=== PATIENT | female | born 1975 | race African-American/Black ===

== ENCOUNTER 2018-05-28 16:29 | Emergency (ER) | payer OTHER ==
[~2018-05-28] VITALS: Ht 170.2 cm; Wt 61.2 kg
[~2018-05-28 16:29] MED LIST: BACTRIM-DS1 EA ORAL; BENADRYL50 MG PO; CIPRO500 MG PO; DIPHENHYDRAMINE25 M1 ORAL; KEFLEX500 MG ORAL; NITROFURANTOIN100 M2 ORAL; NKM; PREDNISONE20 MG ORAL
[2018-05-28 16:45] VITALS: BP 146/88
[2018-05-28] MEDS ORDERED: BENADRYL25 MG ORAL (17:01)
[2018-05-28] MEDS ORDERED: PREDNISONE20 MG ORAL (17:01)
[2018-05-28 17:30] VITALS: BP 146/88
--- NOTE | 2018-05-28 21:34 | Emergency Room Report ---
History of Present Illness General Chief Complaint: Upper Extremity Injury Source: Patient Present Illness HPI Patient 43-year-old female presented after increased itching and upper extremity discomfort. Patient reports having increased generalized itching. This of been present for several days. She reports having additional complaints of discomfort to her right upper extremities. Patient denied any fever. Allergies: Coded Allergies: No Known Allergies (Unverified , 09/04/12) Patient History Reviewed Nursing Documentation: PMH: Agreed; PSxH: Agreed Nursing Documentation-PMH Past Medical History: No Stated History Hx Neurological Problems: Yes - HX OF RASH Review of Systems All Other Systems: negative except mentioned in HPI Physical Exam Vital Signs Date Time Temp Pulse Resp B/P (MAP) Pulse Ox O2 Delivery O2 Flow Rate FiO2 05/28/18 16:32 98.1 99 16 146/88 97 Room Air 98.1 General Appearance: well appearing, no apparent distress, alert, GCS 15 Head: normocephalic, atraumatic ENT: hearing grossly normal, normal voice, other - slight swelling Neck: full range of motion, supple Respiratory: no respiratory distress, speaking full sentences Gastrointestinal: normal inspection, non tender Musculoskeletal: normal inspection, back normal, no calf tenderness Neurologic: normal inspection, alert, oriented x3, responsive, 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 Differential diagnosis included was not limited to allergic reaction, scabies, abscess, cellulitis among others. Patient has a benign exam and does not appear to require any further imaging or laboratory testing at this time. Patient was given Benadryl as well as steroids. Patient is advised follow-up with her primary care physician for reexamination the next few days. Labs Test 05/28/18 17:00 Urine HCG, Qualitative Negative (NEGATIVE) Last Vital Signs Date Time Temp Pulse Resp B/P (MAP) Pulse Ox O2 Delivery O2 Flow Rate FiO2 05/28/18 17:30 98.1 99 16 146/88 97 Room Air 98.1 Status: improved Disposition: HOME, SELF-CARE Condition: Stable Scripts Diphenhydramine Hcl* (BENADRYL*) 25 Mg Capsule 25 MG ORAL Q6H PRN for Itching, #20 CAP Prov: John Nagy MD 05/28/18 Prednisone* (PREDNISONE*) 20 Mg Tablet 40 MG ORAL DAILY, #10 TAB Prov: John Nagy MD 05/28/18 Referrals: Sukhwinder CANTU,REFERRING (PCP) Patient Instructions: Pruritus John Nagy MD May 28, 2018 21:34
== END 2018-05-28 17:30 | disposition home or self-care (01) ==
LOC: EMR 17:10
DX: T78.40XA Allergy, unspecified, initial encounter (principal); L29.8 Other pruritus
CPT/HCPCS: 81025; 99283; J7512

== ENCOUNTER 2018-09-22 18:46 | Emergency (ER) | payer OTHER ==
[~2018-09-22] VITALS: Ht 172.7 cm; Wt 72.6 kg
[~2018-09-22 18:46] MED LIST changes: +BACTRIM DS TAB1 EAC1 ORAL; +BENADRYL25 MG ORAL; +IBUPROFEN600 MG ORAL
[2018-09-22 19:09] VITALS: BP 128/78
--- NOTE | 2018-09-22 19:09 | NUR ---
ED Nurse Note: Pt walked in ER and c/o for bartholins gland infection. per pt the inserts places yesterday came out. per pt inserts were to be removed on 09/28/18. pt is feels pain in genital area 04/23. per pt bloody drainage present but is slowing down. ELENA seen Pt at bedside.
[2018-09-22] MEDS ORDERED: Lidocaine 1% Plain 30 ml INJ ONE (20:30)
--- NOTE | 2018-09-22 21:00 | NUR ---
ED Nurse Note: Clean the abscess and pack the dressing.
[2018-09-22] MEDS ORDERED: TYLENOL EXTRA500 MG ORAL (21:16)
--- NOTE | 2018-09-22 21:18 | Emergency Room Report ---
History of Present Illness General Chief Complaint: General Complaint Source: Patient Present Illness HPI 43-year-old female patient presents the ER complaining of Bartholin cyst pain. Patient reports that she was seen here previously in the ER yesterday for similar complaints. Patient reports that she was discharged home with a Word catheter and antibiotics. States she began taking antibiotics. Patient reports that the Word catheter fell out and she is concerned that it needs to be placed back in. Patient reports small amount discharge from Bartholin cyst. Denies dysuria, hematuria. Denies vaginal discharge. Reports pain with ambulation. Requesting work catheter to be placed back in. Denies fever, chest pain, shortness of breath, vomiting, abdominal pain. Allergies: Coded Allergies: No Known Allergies (Unverified , 09/04/12) Patient History Past Medical History: see triage record Last Menstrual Period: 09/09/19 Now: No Reviewed Nursing Documentation: PMH: Agreed; PSxH: Agreed Nursing Documentation-PMH Past Medical History: No History, Except For Hx Neurological Problems: Yes - HX OF RASH Review of Systems All Other Systems: negative except mentioned in HPI Physical Exam Vital Signs Date Time Temp Pulse Resp B/P (MAP) Pulse Ox O2 Delivery O2 Flow Rate FiO2 09/22/18 18:51 98.4 96 16 118/72 96 Sp02 EP Interpretation: reviewed, normal General Appearance: well appearing, no apparent distress, alert, GCS 15, non- toxic Head: normocephalic, atraumatic Eyes: bilateral eye normal inspection, bilateral eye PERRL ENT: hearing grossly normal, normal pharynx, no angioedema, normal voice, uvula midline, moist mucus membranes Neck: full range of motion Respiratory: lungs clear, normal breath sounds, no rhonchi, no respiratory distress, no accessory muscle use, no wheezing, speaking full sentences Cardiovascular #1: regular rate, rhythm, no edema Genitourinary: other - Left-sided Bartholin cyst, no surrounding erythema or edema, no drainage, circular, no induration, small linear laceration noted consistent with history of I&D Musculoskeletal: back normal, digits/nails normal, gait/station normal, normal range of motion, non-tender Neurologic: alert, oriented x3, responsive, motor strength/tone normal, sensory intact Skin: no rash Procedures Incision and Drainage Incision and Drainage : Consent: Verbal Site: Left Bartholin cyst Blade Size: 11 I & D Procedure: betadine prep, sterile drapes applied, sterile dressing applied Wound Location: other - Bartholin cyst Wound's Depth, Shape: superficial Wound Length (cm): 1 Wound Explored: contaminated Irrigated w/ Saline (ccs): 10 Anesthesia: 1% Lidocaine Volume Anesthetic (ccs): 2 Splint Applied?: No Sling Applied?: No Patient Tolerated: Well Complications: None Medical Decision Making PA Attestation Dr. Ford is my supervising Physician whom patient management has been discussed with. Diagnostic Impression: Primary Impression: Bartholin's cyst ER Course Pt presents to ED c/o Bartholin cyst, states word catheter fell out. DDX considered but are not limited to Bartholin cyst, herpes,gonorrhea, chlamydia, yeast infection, BV. VITAL SIGNS are WNL, patient is afebrile. ER COURSE Physical exam performed with female nurse present. Left Bartholin cyst noted, no surrounding erythema or edema. Small linear laceration noted, no drainage present, no Word catheter. Discussed with patient causes and symptoms of Bartholin cyst infection; informed patient that symptomatic cysts require I&D. Informed patient that Word catheters may fall out on their own. Patient reports understanding and requests Word Catheter be replaced. I&D performed. See procedure note. Local block with lidocaine. Word catheter used and inflated with 2.5ccs of normal saline. ER precautions given. Followup with OBGYN. Continue taking medications as previously instructed. Followup with [facility] clinic. Inform partners of need for testing. DISCHARGE: At this time pt is stable for d/c to home.Resting comfortably in no acute distress, nontoxic appearing. Will provide with patient care instructions and any necessary prescriptions. Patient to take medication as instructed. Care plan and follow-up instructions provided. Patient questions asked and answered. Patient instructed to follow-up with primary care provider in 3 - 5 days. ER precautions given. Patient instructed to return to ER immediately for any new or worsening of symptoms. - Please note that this Emergency Department Report was dictated using [employer]at[employer] machinery assembler technology software, occasionally this can lead to erroneous entry secondary to interpretation by the dictation equipment. Last Vital Signs Date Time Temp Pulse Resp B/P (MAP) Pulse Ox O2 Delivery O2 Flow Rate FiO2 09/22/18 18:51 98.4 96 16 118/72 96 Status: improved Disposition: HOME, SELF-CARE Condition: Stable Scripts Acetaminophen* (TYLENOL EXTRA STRENGTH*) 500 Mg Tablet 500 MG ORAL Q8H PRN for Prn Headache/Temp > 101, #30 TAB 0 Refills Prov: Caleb Ambrocio 09/22/18 Patient Instructions: Bartholin Cyst or Abscess, [id number] Additional Instructions: Followup with OBGYN in 1-2 days. Take medications as directed. Take Tylenol for pain, do not take Ibuprofen. Avoid sexual activity. Inform sexual partners of need for testing. Followup with STI clinic for further testing and treatment. Patient questions asked and answered. ER precautions given, patient instructed to return to ER immediately for any new or worsening of symptoms including but not limited to chest pain, SOB, intractable vomiting, profuse vaginal bleeding, abdominal pain. Caleb Ambrocio Sep 22, 2018 21:18
[2018-09-22 21:30] VITALS: BP 127/87
--- NOTE | 2018-09-22 21:30 | NUR ---
ED Nurse Note: Pt cleared DC by ELENA. Pt is AO x 4times, VSS, on room air no distress. DC and Meds instructions given to Pt, Pt understood well. Belongings given to Pt. ID bend removed. Pt walked out unit with steady gait.
== END 2018-09-22 21:30 | disposition home or self-care (01) ==
LOC: EMR 19:58
DX: N75.0 Cyst of Bartholin's gland (principal)
CPT/HCPCS: 56420; 99283; J2001

== ENCOUNTER 2018-09-27 13:07 | Emergency (ER) | payer OTHER ==
[~2018-09-27] VITALS: Ht 170.2 cm; Wt 72.6 kg
[~2018-09-27 13:07] MED LIST changes: +TYLENOL EXTRA500 MG ORAL
[2018-09-27] MEDS ORDERED: NKM (13:15)
[2018-09-27 13:20] VITALS: BP 133/73
--- NOTE | 2018-09-27 13:42 | Emergency Room Report ---
History of Present Illness General Chief Complaint: Female Urogenital Problems Source: Patient Present Illness HPI 43 Yo Female presents to the ED c/o recent Bartholin's gland I & D that now has developed a palpable hardened area, and continues to be tender. 8/10 in severity. pt. reports symptoms have improved greatly since her initial visit. Pt. has not made a Occupational Health Rn follow up appt. pt. denies erythema, warmth, swollen tender lymph nodes, fevers or chills. pt. reports new white vaginal d/c with some itching. Denies additional genital lesions. pt. reports she finished abx and is still taking Motrin. Allergies: Coded Allergies: No Known Allergies (Unverified , 09/04/12) Patient History Past Medical History: see triage record Past Surgical History: none Pertinent Family History: none Last Menstrual Period: 09/09/18 Now: No : 0 Para: 0 Reviewed Nursing Documentation: PMH: Agreed; PSxH: Agreed Nursing Documentation-PMH Past Medical History: No History, Except For Hx Neurological Problems: Yes - HX OF RASH Review of Systems All Other Systems: negative except mentioned in HPI Physical Exam Vital Signs Date Time Temp Pulse Resp B/P (MAP) Pulse Ox O2 Delivery O2 Flow Rate FiO2 09/27/18 13:10 97.9 100 18 133/73 99 Room Air Sp02 EP Interpretation: reviewed, normal General Appearance: no apparent distress, alert, GCS 15, non-toxic Head: normocephalic, atraumatic Eyes: bilateral eye normal inspection, bilateral eye PERRL ENT: hearing grossly normal, normal voice Neck: full range of motion Respiratory: lungs clear, normal breath sounds, speaking full sentences Cardiovascular #1: regular rate, rhythm Genitourinary: other - Thick white vaginal d/c, Some induration/palpable firmness to the left lower labia/bartholins gland. NO erythema, no warmth, no additinoal lesions. initial incision is healed. Musculoskeletal: back normal, gait/station normal, normal range of motion, non- tender Neurologic: alert, oriented x3, responsive, motor strength/tone normal, sensory intact, speech normal, grossly normal Psychiatric: judgement/insight normal Skin: normal color, no rash, warm/dry, well hydrated Lymphatic: no adenopathy Medical Decision Making PA Attestation Dr. stein is my supervising Physician whom patient management has been discussed with. Diagnostic Impression: Primary Impression: Cyst of Bartholin's gland ER Course 43 Yo Female presents to the ED c/o recent Bartholin's gland I & D that now has developed a palpable hardened area, and continues to be tender. 8/10 in severity. pt. reports symptoms have improved greatly since her initial visit. Pt. has not made a Occupational Health Rn follow up appt. pt. denies erythema, warmth, swollen tender lymph nodes, fevers or chills. pt. reports new white vaginal d/c with some itching. Denies additional genital lesions. pt. reports she finished abx and is still taking Motrin. Ddx considered but are not limited to cellulitis, abscess, in-grown hair, recurrent Bartholin gland abscess, Yeast infection just to name a few. Vital signs: are WNL, pt. is afebrile H&PE are most consistent with scarring from bartholin gland i & D. no erythema , no warmth. ORDERS: none required at this time, the diagnosis is clinical ED INTERVENTIONS: -Diflucan PO --D/w pt. that This does not appear to be infected or abscessed at this time however will keep her on some antibiotics to prevent infection I discussed with this patient the importance of chronic logical follow-up for further management or treatment of this condition as this may require surgical removal or other specialty type treatments. DISCHARGE: At this time pt. is stable for d/c to home. Will provide printed patient care instructions, and any necessary prescriptions. Care plan and follow up instructions have been discussed with the patient prior to discharge. Last Vital Signs Date Time Temp Pulse Resp B/P (MAP) Pulse Ox O2 Delivery O2 Flow Rate FiO2 09/27/18 13:10 97.9 100 18 133/73 99 Room Air Disposition: HOME, SELF-CARE Condition: Stable Scripts Fluconazole (FLUCONAZOLE) 100 Mg Tablet 100 MG ORAL DAILY, #4 TAB 0 Refills Prov: Paradise Argueta 09/27/18 Lidocaine (Lidocaine) 5 Gm Cream..g. 1 APPLIC TP Q6HR, #5 GM Prov: Paradise Argueta 09/27/18 Clindamycin Hcl (CLINDAMYCIN HCL) 300 Mg Capsule 300 MG ORAL FOUR TIMES A DAY for 7 Days, #28 CAP Prov: Paradise Argueta 09/27/18 Referrals: NON PHYSICIAN (PCP) Patient Instructions: Bartholin Cyst or Abscess, Alwe-ax-Ponb Additional Instructions: Take medications as directed. Follow up with a OBGYN within 3 days, For evaluation of recurrent Bartholin 's gland abscess and cyst complications. Return sooner to ED if new symptoms occur, or current symptoms become worse. - Please note that this Emergency Department Report was dictated using Codigamesbending press operator technology software, occasionally this can lead to erroneous entry secondary to interpretation by the dictation equipment. Paradise Argueta Sep 27, 2018 13:42
[2018-09-27] MEDS ORDERED: LIDOCAINE5 GM TP (13:44)
[2018-09-27] MEDS ORDERED: CLINDAMYCIN HC300 MG ORAL (13:44)
[2018-09-27] MEDS ORDERED: FLUCONAZOLE100 MG ORAL (13:44)
[2018-09-27] MEDS ORDERED: Fluconazole 100mg tab ORAL ONE (14:00)
[2018-09-27 14:15] VITALS: BP 133/73
== END 2018-09-27 14:15 | disposition home or self-care (01) ==
LOC: EMR 13:30
DX: N75.0 Cyst of Bartholin's gland (principal)
CPT/HCPCS: 99282

== ENCOUNTER 2019-02-20 09:08 | Emergency (ER) | payer OTHER ==
[~2019-02-20] VITALS: Ht 172.7 cm; Wt 65.8 kg
[~2019-02-20 09:08] MED LIST changes: +CLINDAMYCIN HC300 MG ORAL; +FLUCONAZOLE100 MG ORAL; +LIDOCAINE5 GM TP
[2019-02-20] MEDS ORDERED: GABAPENTIN300 MG ORAL (09:22)
[2019-02-20 09:30] VITALS: BP 132/79
--- NOTE | 2019-02-20 09:32 | NUR ---
ED Nurse Note: pt walked in due to itchiness all over the body on and off, denies any allergies, pt stated she took benadryl last night and didnt help. no rash noted. pt complains of pain on the lower back, denies trauma.
--- NOTE | 2019-02-20 09:42 | Emergency Room Report ---
History of Present Illness General Chief Complaint: General Complaint Source: Patient Present Illness HPI Patient presents with itching that began yesterday. She's had similar reaction in the past but never this severe. She's not sure what she was in contact with. She tried taking a hot shower and this made it worse. She took Benadryl this morning. She denies any fevers, chills, nausea, vomiting, diarrhea, throat swelling, wheezing or dizziness. Her last period was February 05 and normal for her. 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 Now: No Reviewed Nursing Documentation: PMH: Agreed; PSxH: Agreed Nursing Documentation-PMH Past Medical History: No History, Except For Hx Neurological Problems: Yes - HX OF RASH, nerve pain Review of Systems All Other Systems: negative except mentioned in HPI Physical Exam Vital Signs Date Time Temp Pulse Resp B/P (MAP) Pulse Ox O2 Delivery O2 Flow Rate FiO2 02/20/19 09:17 97.9 83 17 132/79 (96) 99 Room Air Sp02 EP Interpretation: reviewed, normal General Appearance: well appearing, no apparent distress, alert, GCS 15, non- toxic Head: normocephalic, atraumatic Eyes: bilateral eye normal inspection, bilateral eye PERRL ENT: hearing grossly normal, normal voice, moist mucus membranes Neck: full range of motion, supple Respiratory: lungs clear, normal breath sounds, no respiratory distress, speaking full sentences Cardiovascular #1: regular rate, rhythm Cardiovascular #2: 2+ radial (R) Gastrointestinal: normal inspection, non tender Genitourinary: no CVA tenderness Musculoskeletal: digits/nails normal, gait/station normal, normal range of motion Neurologic: alert, oriented x3, normal gait, grossly normal Psychiatric: mood/affect normal Skin: other - Cgixy-dpe-reeft and scratching Medical Decision Making Diagnostic Impression: Primary Impression: Urticaria Additional Impression: UTI (urinary tract infection) Qualified Codes: N30.00 - Acute cystitis without hematuria ER Course Patient presents with generalized itching. She's been seen for allergic reactions in the past. Differential includes hives, allergic reaction, food allergies, exposure to other substances amongst others. The patient will be treated with IM epinephrine, oral prednisone and Vistaril as she took Benadryl earlier today. Urinalysis will be obtained. Urinalysis negative. Patient still with itching but slightly improved. Vistaril given. Patient itching is decreased. Discussed with patient the need to follow-up with an snap attacher to determine what causes these reactions. Patient stable for outpatient observation and treatment. Laboratory Tests Test 02/20/19 09:45 Urine Color Pale yellow Urine Appearance Clear Urine pH 5 (4.5-8.0) Urine Specific [place] 1.025 (1.005-1.035) Urine Protein 2+ (NEGATIVE) H Urine Glucose (UA) 2+ (NEGATIVE) H Urine Ketones 1+ (NEGATIVE) H Urine Blood Negative (NEGATIVE) Urine Nitrite Negative (NEGATIVE) Urine Bilirubin Negative (NEGATIVE) Urine Urobilinogen Normal MG/DL (0.0-1.0) Urine Leukocyte Esterase 3+ (NEGATIVE) H Urine RBC 0-2 /HPF (0 - 2) Urine WBC 10-15 /HPF (0 - 2) H Urine Squamous Epithelial Cells Few /LPF (NONE/OCC) Urine Bacteria Few /HPF (NONE) Urine HCG, Qualitative Negative (NEGATIVE) Urine Opiates Screen Negative (NEGATIVE) Urine Barbiturates Screen Negative (NEGATIVE) Phencyclidine (PCP) Screen Negative (NEGATIVE) Urine Amphetamines Screen Negative (NEGATIVE) Urine Benzodiazepines Screen Negative (NEGATIVE) Urine Cocaine Screen Negative (NEGATIVE) Urine Marijuana (THC) Screen Negative (NEGATIVE) Last Vital Signs Date Time Temp Pulse Resp B/P (MAP) Pulse Ox O2 Delivery O2 Flow Rate FiO2 02/20/19 10:50 98.0 78 16 115/75 98 Room Air Status: improved Disposition: HOME, SELF-CARE Condition: Improved Scripts Nitrofurantoin Monohyd/M-Cryst* (MACROBID 100 MG*) 100 Mg Capsule 100 MG ORAL EVERY 12 HOURS, #14 CAP Prov: Pepe Wagner MD 02/20/19 Diphenhydramine Hcl* (BENADRYL*) 25 Mg Capsule 25 MG ORAL Q6H PRN for Itching, #20 CAP 1 Refill Prov: Pepe Wagner MD 02/20/19 Prednisone* (PREDNISONE*) 20 Mg Tablet 40 MG ORAL DAILY, #10 TAB Prov: Pepe Wagner MD 02/20/19 Pepe Wagner MD Feb 20, 2019 09:42
[2019-02-20] MEDS ORDERED: EPINEPHrine 1mg/1ml Amp IM ONE (09:45)
--- NOTE | 2019-02-20 09:55 | NUR ---
ED Nurse Note: pt medicated and tolerated well.
--- NOTE | 2019-02-20 09:56 | NUR ---
ED Nurse Note: Pt able to give urine sample and was sent to lab.
[2019-02-20 10:07] LABS: APPEARANCE,URINE CLEAR; BILIRUBIN, URINE NEGATIVE (NEGATIVE); COLOR,URINE PALE YELLOW; GLUCOSE, URINE (UA) 2+ (NEGATIVE); KETONES,URINE 1+ (NEGATIVE); LEUKOCYTE ESTERASE ,URINE 3+ (NEGATIVE); NITRITE,URINE NEGATIVE (NEGATIVE); PH,URINE 5 (4.5-8.0); PROTEIN,URINE 2+ (NEGATIVE); UROBILINOGEN,URINE NORMAL MG/DL (0.0-1.0)
--- NOTE | 2019-02-20 10:25 | NUR ---
ED Nurse Note: pt reassess, pt is not in distress, no complaint of dyspnea, pt complains of itchiness even after medicated. ermd made aware and order IM benadryl and carried out. pt medicated and tolerated well. will continue to monitor
[2019-02-20] MEDS ORDERED: DiphenhydrAMINE 50mg/ml Inj IM ONE (10:30)
[2019-02-20] MEDS ORDERED: PREDNISONE20 MG ORAL (10:40)
[2019-02-20] MEDS ORDERED: BENADRYL25 MG ORAL (10:40)
[2019-02-20] MEDS ORDERED: NITROFURANTOIN100 M2 ORAL (10:40)
[2019-02-20 10:50] VITALS: BP 115/75
--- NOTE | 2019-02-20 10:50 | NUR ---
ER DISCHARGE NOTE: Patient is cleared to be discharged per ERMD, pt is aox4, on room air, with stable vital signs. pt was given dc and prescription instructions, pt was able to verbalize understanding, pt id band removed without complications. pt is able to ambulate with steady gait. pt took all belongings.
== END 2019-02-20 10:50 | disposition home or self-care (01) ==
LOC: EMR 09:53
DX: L50.9 Urticaria, unspecified (principal); N39.0 Urinary tract infection, site not specified
CPT/HCPCS: 80307; 81003; 81025; 87086; 96372; 99283; J0171; J1200; J7512

== ENCOUNTER 2019-05-06 16:40 | Emergency (ER) | payer OTHER ==
[~2019-05-06] VITALS: Ht 170.2 cm; Wt 72.6 kg
[~2019-05-06 16:40] MED LIST changes: +GABAPENTIN300 MG ORAL
--- NOTE | 2019-05-06 16:55 | NUR ---
ED Nurse Note: Patient walked into ED c/o left forearm itchiness and swelling, painful, radiating to all of her left forearm. patient reports that she felt unknown insect bite, then today, the site had swelling and it's painful. patient is alert awake x4 ambuatory breathing unlabored and even.
[2019-05-06 17:10] VITALS: BP 130/85
--- NOTE | 2019-05-06 17:10 | Emergency Room Report ---
History of Present Illness General Chief Complaint: Skin Rash/Abscess Source: Patient Present Illness HPI 44 YO Female presents to the ED c/o 04/23 in severity pain, swelling, and erythema of left forearm that has been progressive x 2 days with initial itching. Pt. believes she was bitten by an insect. Denies fevers or chills. Reports erythema and warmth is spreading up the left fore arm. Pt. reports intermittent tingling sensations. She reports letting her arm hang exacerbates swelling and pain. She also reports pain with twisting the left forearm/lifting objects. Denies swollen tender lymph nodes. Denies hx of immune compromise. Denies IV drug use. Allergies: Coded Allergies: No Known Allergies (Unverified , 09/04/12) Patient History Past Medical History: see triage record Past Surgical History: none Pertinent Family History: none Now: No Reviewed Nursing Documentation: PMH: Agreed; PSxH: Agreed Nursing Documentation-PMH Past Medical History: No Stated History Hx Neurological Problems: Yes - HX OF RASH, nerve pain Review of Systems All Other Systems: negative except mentioned in HPI Physical Exam Vital Signs Date Time Temp Pulse Resp B/P (MAP) Pulse Ox O2 Delivery O2 Flow Rate FiO2 05/06/19 16:45 98.2 107 18 132/90 (104) 99 Room Air Sp02 EP Interpretation: reviewed, normal General Appearance: no apparent distress, alert, GCS 15, non-toxic Head: normocephalic, atraumatic Eyes: bilateral eye normal inspection, bilateral eye PERRL ENT: hearing grossly normal, normal voice Neck: full range of motion Respiratory: chest non-tender, lungs clear, normal breath sounds, speaking full sentences Cardiovascular #1: regular rate, rhythm, no edema, normal capillary refill Musculoskeletal: back normal, gait/station normal, normal range of motion, tender - TTP to the medial / volar aspect of the left forearm, swelling, erythema and warmth noted. area spanning 12cm in diameter. no palpable fluctuance. Neurologic: alert, oriented x3, responsive, motor strength/tone normal, sensory intact, speech normal, grossly normal Psychiatric: judgement/insight normal Skin: other - --Medial / Volar aspect of the left forearm, swelling, erythema and warmth noted. area spanning 12cm in diameter. no palpable fluctuance. Lymphatic: no adenopathy Medical Decision Making PA Attestation Dr. Bah is my supervising Physician whom patient management has been discussed with. Diagnostic Impression: Primary Impression: Cellulitis of forearm, left ER Course 44 YO Female presents to the ED c/o 04/23 in severity pain, swelling, and erythema of left forearm that has been progressive x 2 days with initial itching. Pt. believes she was bitten by an insect. Denies fevers or chills. Reports erythema and warmth is spreading up the left fore arm. Pt. reports intermittent tingling sensations. She reports letting her arm hang exacerbates swelling and pain. She also reports pain with twisting the left forearm/lifting objects. Denies swollen tender lymph nodes. Denies hx of immune compromise. Denies IV drug use. Ddx considered but are not limited to cellulitis, lymphangitis, allergic reaction just to name a few. Vital signs: are WNL, pt. is afebrile H&PE are most consistent with Cellulitis of the left forearm. ORDERS: none required at this time, the diagnosis is clinical ED INTERVENTIONS: -Clindamycin 300mg PO - Hydrocortisone 2.5% cream TP --Left arm Sling applied by body shop technician. Pt. remains neurovascularly intact. -I do not identify an emergent condition at this time. With current presentation , pt. is stable for close outpatient follow up and conservative treatment. D/ w pt. to return promptly to ED with worsening or new symptoms.- Pt. verbalizes' understanding and agreement with proposed treatment plan. DISCHARGE: At this time pt. is stable for d/c to home. Will provide printed patient care instructions, and any necessary prescriptions. Care plan and follow up instructions have been discussed with the patient prior to discharge. Last Vital Signs Date Time Temp Pulse Resp B/P (MAP) Pulse Ox O2 Delivery O2 Flow Rate FiO2 05/06/19 16:45 98.2 107 18 132/90 (104) 99 Room Air Status: improved Disposition: HOME, SELF-CARE Condition: Stable Scripts Ibuprofen* (MOTRIN*) 400 Mg Tablet 400 MG ORAL THREE TIMES A DAY, #30 TAB 0 Refills Prov: Paradise Argueta 05/06/19 Diphenhydramine Hcl (BENADRYL ALLERGY) 25 Mg Tablet 25 MG PO Q6HR, #30 TAB Prov: Paradise Argueta 05/06/19 Clindamycin Hcl (CLINDAMYCIN HCL) 300 Mg Capsule 300 MG ORAL FOUR TIMES A DAY for 7 Days, #28 CAP Prov: Paradise Argueta 05/06/19 Patient Instructions: Cellulitis, [id number] Additional Instructions: Take medications as directed. Follow up with a Primary Care Provider in 3-5 days, even if your symptoms have resolved. --Please review list of primary care clinics, if you do not already have a primary care provider Return sooner to ED if new symptoms occur, or current symptoms become worse. Do not drink alcohol, drive, or operate heavy machinery while taking Benadryl as this may cause drowsiness. - Please note that this Emergency Department Report was dictated using [email or web address] resource officer technology software, occasionally this can lead to erroneous entry secondary to interpretation by the dictation equipment. Paradise Argueta May 06, 2019 17:09
[2019-05-06] MEDS ORDERED: Clindamycin 150mg cap ORAL ONE (17:15)
[2019-05-06] MEDS ORDERED: IBUPROFEN400 MG ORAL (17:19)
[2019-05-06] MEDS ORDERED: CLINDAMYCIN HC300 MG ORAL (17:19)
[2019-05-06] MEDS ORDERED: BENADRYL ALLERG25 M1 PO (17:19)
[2019-05-06 17:43] VITALS: BP 130/85
--- NOTE | 2019-05-06 17:43 | NUR ---
ER DISCHARGE NOTE: Patient is cleared to be discharged per JESUS COVINGTON, pt is aox4, on room air, with stable vital signs. pt was given dc and prescription instructions pt was able to verbalize understanding, pt id band removed without complications. pt is able to ambulate with steady gait. pt took all belongings.
== END 2019-05-06 17:43 | disposition home or self-care (01) ==
LOC: EMR 17:08
DX: L03.114 Cellulitis of left upper limb (principal)
CPT/HCPCS: 99282

== ENCOUNTER 2019-10-26 16:24 | Emergency (ER) | payer OTHER ==
[~2019-10-26] VITALS: Ht 170.2 cm; Wt 72.6 kg
[~2019-10-26 16:24] MED LIST changes: +BENADRYL ALLERG25 M1 PO; +IBUPROFEN400 MG ORAL
--- NOTE | 2019-10-26 16:38 | NUR ---
ED Nurse Note: Pt walked in from home c/o neck pain and itchiness all over her body for 4 days. Respirations even and unlabored on room air. Vitals stable as documented.
[2019-10-26 16:39] VITALS: BP 127/83
--- NOTE | 2019-10-26 16:55 | Emergency Room Report ---
History of Present Illness General Chief Complaint: Pain Source: Patient Present Illness HPI 44-year-old female presents to the emergency department complaining of 8 out of 10 severity pain, tightness and tenderness to the right side of her neck upon awakening this 4 days ago. She reports neck stiffness has remained the same, but itchiness all over the body has been progressive. Patient also reports that she is been having diffuse itchiness all over her body with some hives since yesterday. She denies midline neck or back pain. She denies trauma or fall. She denies headache or photophobia. She reports pain is exacerbated when raising the right arm up above her head or twisting her head from side to side. She states the pain is only localized to the right posterior aspect of her neck. Denies shoulder involvement. Pt. denies fevers, chills or swollen tender lymph nodes. Denies lesions/rashes elsewhere on the body. Denies new medications or body washes or creams. Denies swelling of the lips, tongue , throat or airway. Denies wheezing, or shortness of breath. Denies recent travel , recent illness or ill contacts. denies blisters, oral lesions, or sloughing of the skin Allergies: Coded Allergies: No Known Allergies (Unverified , 09/04/12) Patient History Past Medical History: see triage record Past Surgical History: none Pertinent Family History: none Reviewed Nursing Documentation: PMH: Agreed; PSxH: Agreed Nursing Documentation-PMH Past Medical History: No History, Except For Hx Neurological Problems: Yes - HX OF RASH, nerve pain Review of Systems All Other Systems: negative except mentioned in HPI Physical Exam Vital Signs Date Time Temp Pulse Resp B/P (MAP) Pulse Ox O2 Delivery O2 Flow Rate FiO2 10/26/19 16:32 98.1 93 18 127/83 (98) 99 Room Air Sp02 EP Interpretation: reviewed, normal General Appearance: no apparent distress, alert, GCS 15, non-toxic Head: normocephalic, atraumatic Eyes: bilateral eye normal inspection, bilateral eye PERRL ENT: hearing grossly normal, no angioedema, normal voice, other - No oral lesions, no swelling of the lips or tongues. Neck: full range of motion, no meningismus, tender lateral - Right sided, no midline spinous process ttp, FROM. Respiratory: lungs clear, normal breath sounds, no wheezing, speaking full sentences, other - No Stridor Cardiovascular #1: regular rate, rhythm, normal capillary refill Cardiovascular #2: 2+ radial (R), 2+ radial (L) Musculoskeletal: normal range of motion, gait/station normal, tender - RIght trapezius ttp, and some right rhomboid ttp, no bony ttp, FROM of right shoulder and neck. No midline spinous process ttp. No palpable step-offs or obvious deformities of the cervical, thoracic or lumbar spine. Neurologic: alert, motor strength/tone normal, oriented x3, sensory intact, responsive, speech normal Psychiatric: judgement/insight normal Skin: rash - Diffuse erythematous patches with some swelling throughout the upper extremities bilaterally, the torso, the back, the thighs bilaterally. No blisters or vesicles. No sloughing of the skin Lymphatic: no adenopathy Medical Decision Making PA Attestation Dr. Obregon is my supervising Physician whom patient management has been discussed with. Diagnostic Impression: Primary Impression: Urticaria Additional Impression: Cervical strain, acute Qualified Codes: S16.1XXA - Strain of muscle, fascia and tendon at neck level , initial encounter ER Course 44-year-old female presents to the emergency department complaining of 8 out of 10 severity pain, tightness and tenderness to the right side of her neck upon awakening this 4 days ago. She reports neck stiffness has remained the same, but itchiness all over the body has been progressive. Patient also reports that she is been having diffuse itchiness all over her body with some hives since yesterday. She denies midline neck or back pain. She denies trauma or fall. She denies headache or photophobia. She reports pain is exacerbated when raising the right arm up above her head or twisting her head from side to side. She states the pain is only localized to the right posterior aspect of her neck. Denies shoulder involvement. Pt. denies fevers, chills or swollen tender lymph nodes. Denies lesions/rashes elsewhere on the body. Denies new medications or body washes or creams. Denies swelling of the lips, tongue , throat or airway. Denies wheezing, or shortness of breath. Denies recent travel , recent illness or ill contacts. denies blisters, oral lesions, or sloughing of the skin Ddx considered but are not limited to Fracture, dislocation, contusion, Sprain/ Strain/Spasm, to cellulitis, scabies, shingles, varicella, dermatitis, urticaria , eczema, tinea, viral exanthem, SJS, sprain, strain, Torticollis, lymphadenopathy, tonsillitis, OE, Cellulitis, PATENT [place], retropharyngeal abscess. meningitis, LAD just to name a few. Epidural abscess, Neoplastic mets. Vital signs: are WNL, pt. is afebrile H&PE are most consistent with acute urticaria, diffuse without evidence of airway compromise. Acute cervical strain, no meningeal signs, no focal neurological deficits. ORDERS: - None required at this time. ED INTERVENTIONS: - Benadryl PO -Prednisone PO - Robaxin PO -Lidoderm TP DISCHARGE: At this time pt. is stable for d/c to home. Will provide printed patient care instructions, and any necessary prescriptions. Care plan and follow up instructions have been discussed with the patient prior to discharge. Last Vital Signs Date Time Temp Pulse Resp B/P (MAP) Pulse Ox O2 Delivery O2 Flow Rate FiO2 10/26/19 16:39 98.1 82 18 127/83 99 Room Air Status: improved Disposition: HOME, SELF-CARE Condition: Stable Scripts Ibuprofen* (MOTRIN*) 600 Mg Tablet 600 MG ORAL THREE TIMES A DAY, #30 TAB 0 Refills Prov: Paradise Argueta 10/26/19 Diphenhydramine Hcl* (BENADRYL*) 25 Mg Capsule 25 MG ORAL Q6H PRN for Itching, #30 CAP Prov: Paradise Argueta 10/26/19 Methocarbamol* (ROBAXIN-750*) 750 Mg Tablet 750 MG PO QID for 7 Days, #28 TAB 0 Refills Prov: Paradise Argueta 10/26/19 Departure Forms: Return to Work Return to Work Date: Oct 30, 2019 Work Restrictions: No Heavy Lifting Other Restrictions: light duty. May return Sooner if Symptoms have resolved. Return to Full Activity: Nov 02, 2019 Patient Instructions: Cervical Sprain, [id number], Pruritus Additional Instructions: Take medications as directed. Follow up with a Primary Care Provider in 3-5 days for DERMATOLOGY REFERRAL , even if your symptoms have resolved. Return sooner to ED if new symptoms occur, or current symptoms become worse. Do not drink alcohol, drive, or operate heavy machinery while taking Robaxin as this may cause drowsiness. - Please note that this Emergency Department Report was dictated using AQHlog chipper operator technology software, occasionally this can lead to erroneous entry secondary to interpretation by the dictation equipment. Paradise Argueta Oct 26, 2019 16:55
[2019-10-26] MEDS ORDERED: DiphenhydrAMINE 25mg Tab ORAL ONE (17:15)
[2019-10-26] MEDS ORDERED: Methocarbamol 750mg tab ORAL ONE (17:15)
[2019-10-26] MEDS ORDERED: ROBAXIN-750750 MG PO (17:45)
[2019-10-26] MEDS ORDERED: IBUPROFEN600 MG ORAL (17:45)
[2019-10-26] MEDS ORDERED: BENADRYL25 MG ORAL (17:45)
--- NOTE | 2019-10-26 17:55 | NUR ---
ER DISCHARGE NOTE: Patient is cleared to be discharged per ERMD, pt is aox4, on room air, with stable vital signs as documented. pt was given dc and prescription instructions and was able to verbalize understanding. pt id band removed. pt is able to ambulate with steady gait. pt took all belongings.
[2019-10-26 18:00] VITALS: BP 131/84
== END 2019-10-26 17:55 | disposition home or self-care (01) ==
LOC: EMR 17:00
DX: L50.9 Urticaria, unspecified (principal); S16.1XXA Strain of muscle, fascia and tendon at neck level, initial encounter; X58.XXXA Exposure to other specified factors, initial encounter; Y93.9 Activity, unspecified; Y92.9 Unspecified place or not applicable
CPT/HCPCS: 99283; J7512

== ENCOUNTER 2020-02-19 10:19 | Emergency (ER) | payer OTHER ==
[~2020-02-19] VITALS: Ht 170.2 cm; Wt 68.0 kg
[~2020-02-19 10:19] MED LIST changes: +ROBAXIN-750750 MG PO
[2020-02-19 10:30] VITALS: BP 124/81
--- NOTE | 2020-02-19 10:30 | NUR ---
ED Nurse Note: Patient walked in to ED from home c/o sharp pelvic pain, urinary frequency and urgency, burning sensation upon urination x1 week. Pt also c/o cottage cheese vaginal discharge with foul odor. No acute distress. VSS.
--- NOTE | 2020-02-19 10:41 | NUR ---
ED Nurse Note: Urine specimen collected and sent to lab.
[2020-02-19] MEDS ORDERED: Azithromycin 250mg tab ORAL ONE (11:00)
[2020-02-19] MEDS ORDERED: Acetaminophen 500mg (ES) tab ORAL ONE (11:00)
[2020-02-19] MEDS ORDERED: Lidocaine 1% MPF 10mg/ml 5ml INJ ONE (11:00)
[2020-02-19 11:11] LABS: APPEARANCE,URINE CLEAR; BILIRUBIN, URINE NEGATIVE (NEGATIVE); COLOR,URINE PALE YELLOW; GLUCOSE, URINE (UA) NEGATIVE (NEGATIVE); KETONES,URINE NEGATIVE (NEGATIVE); LEUKOCYTE ESTERASE ,URINE NEGATIVE (NEGATIVE); NITRITE,URINE NEGATIVE (NEGATIVE); PH,URINE 6 (4.5-8.0); PROTEIN,URINE NEGATIVE (NEGATIVE); UROBILINOGEN,URINE NORMAL MG/DL (0.0-1.0)
[2020-02-19] MEDS ORDERED: FLUCONAZOLE100 MG ORAL (11:30)
[2020-02-19] MEDS ORDERED: TYLENOL EXTRA500 MG ORAL (11:31)
[2020-02-19 11:35] VITALS: BP 118/84
--- NOTE | 2020-02-21 06:49 | Emergency Room Report ---
History of Present Illness General Chief Complaint: Vaginal Source: Patient Present Illness HPI 45-year-old female presents the ED complaining of vaginal discharge. Notes white curdish discharge x1 week. Burning urination. Denies fevers or chills. Concerned about unprotected sex. No other aggravating relieving factors. Denies any other associated symptoms Allergies: Coded Allergies: No Known Allergies (Unverified , 09/04/12) COVID-19 Screening Contact w/high risk pt: No Recent Travel to affected area: No Experienced COVID-19 symptoms?: No COVID-19 Testing performed TALENT DEVELOPMENT DIRECTOR: No Patient History Past Medical History: DM Past Surgical History: none Pertinent Family History: none Social History: Denies: smoking, alcohol use, drug use Last Menstrual Period: 02/06/20 Now: No Immunizations: UTD Reviewed Nursing Documentation: PMH: Agreed; PSxH: Agreed Nursing Documentation-PMH Past Medical History: No History, Except For Hx Diabetes: Yes Hx Neurological Problems: Yes - HX OF RASH, nerve pain Review of Systems All Other Systems: negative except mentioned in HPI Physical Exam Vital Signs Date Time Temp Pulse Resp B/P (MAP) Pulse Ox O2 Delivery O2 Flow Rate FiO2 02/19/20 10:28 98.2 96 15 124/81 (95) 97 Room Air Sp02 EP Interpretation: reviewed, normal General Appearance: no apparent distress, alert, GCS 15, non-toxic Head: normocephalic, atraumatic Eyes: bilateral eye normal inspection, bilateral eye PERRL ENT: hearing grossly normal, normal pharynx, no angioedema, normal voice Neck: full range of motion, supple/symm/no masses Respiratory: chest non-tender, lungs clear, normal breath sounds, speaking full sentences Cardiovascular #1: regular rate, rhythm, no edema Cardiovascular #2: 2+ carotid (R), 2+ carotid (L), 2+ radial (R), 2+ radial (L) , 2+ dorsalis pedis (R), 2+ dorsalis pedis (L) Gastrointestinal: normal bowel sounds, non tender, soft, non-distended, no guarding, no rebound Rectal: deferred Genitourinary: normal inspection, no CVA tenderness Musculoskeletal: back normal, normal range of motion, gait/station normal, non- tender Neurologic: alert, motor strength/tone normal, oriented x3, sensory intact, responsive, speech normal Psychiatric: judgement/insight normal, memory normal, mood/affect normal, no suicidal/homicidal ideation Reflexes: 3+ bicep (R), 3+ bicep (L), 3+ tricep (R), 3+ tricep (L), 3+ knee (R) , 3+ knee (L) Lymphatic: no adenopathy Medical Decision Making Diagnostic Impression: Primary Impression: Vaginal candidiasis Additional Impression: Concern about STD in female without diagnosis ER Course Hospital Course 45-year-old female presents to ED complaining of dysuria with discharge Differential diagnoses include: UTI, cystitis, pyelonephritis Clinical course Patient placed on stretcher. After initial history and physical I ordered UA, urine . UA noted to be unremarkable. Concern for STD. Given Rocephin/azithromycin ED. Likely candidiasis. I will prescribe Diflucan. Safe for discharge with close outpatient follow-up. I will provide STD clinic referrals Diagnosis - vaginal candidasis, concern about STD Stable and discharged home with prescriptions for Rx diflucan. Instructed to followup with PMD. Return to ED if symptoms recur or worsen Labs Test 02/19/20 10:35 Urine Color Pale yellow Urine Appearance Clear Urine pH 6 (4.5-8.0) Urine Specific [place] 1.010 (1.005-1.035) Urine Protein Negative (NEGATIVE) Urine Glucose (UA) Negative (NEGATIVE) Urine Ketones Negative (NEGATIVE) Urine Blood Negative (NEGATIVE) Urine Nitrite Negative (NEGATIVE) Urine Bilirubin Negative (NEGATIVE) Urine Urobilinogen Normal MG/DL (0.0-1.0) Urine Leukocyte Esterase Negative (NEGATIVE) Urine HCG, Qualitative Negative (NEGATIVE) Last Vital Signs Date Time Temp Pulse Resp B/P (MAP) Pulse Ox O2 Delivery O2 Flow Rate FiO2 02/19/20 11:35 98.2 90 18 118/84 98 Room Air Status: improved Disposition: HOME, SELF-CARE Condition: Stable Scripts Acetaminophen* (TYLENOL EXTRA STRENGTH*) 500 Mg Tablet 500 MG ORAL Q8H PRN for Prn Headache/Temp > 101, #30 TAB 0 Refills Prov: Kane Obregon MD 02/19/20 Fluconazole (FLUCONAZOLE) 100 Mg Tablet 100 MG ORAL DAILY, #4 TAB 0 Refills Prov: Kane Obregon MD 02/19/20 Referrals: NON PHYSICIAN (PCP) [facility] Patient Instructions: Vaginal Yeast Infection, Adult Kane Obregon MD Feb 21, 2020 06:48
== END 2020-02-19 11:35 | disposition home or self-care (01) ==
LOC: EMR 10:58
DX: B37.89 Other sites of candidiasis (principal); E11.9 Type 2 diabetes mellitus without complications; Z20.2 Contact with and (suspected) exposure to infections with a predominantly sexual mode of transmission
CPT/HCPCS: 81003; 81025; 96372; 96374; 99284; J0696

== ENCOUNTER 2020-09-10 11:54 | Emergency (ER) | payer OTHER ==
[~2020-09-10] VITALS: Ht 172.7 cm; Wt 68.0 kg
--- NOTE | 2020-09-10 12:20 | NUR ---
ED Nurse Note: Pt ambulated to ED from home d/t burning sensation upon urination accomapnied by vaginal discharge that has been going on for 1 week. Pt is AOx4, calm and cooperative to care, VSS on RA.
[2020-09-10 12:30] LABS: APPEARANCE,URINE SLIGHTLY CLOUDY; BILIRUBIN, URINE NEGATIVE (NEGATIVE); GLUCOSE, URINE (UA) 4+ (NEGATIVE); KETONES,URINE 1+ (NEGATIVE); LEUKOCYTE ESTERASE ,URINE 1+ (NEGATIVE); NITRITE,URINE NEGATIVE (NEGATIVE); PH,URINE 5 (4.5-8.0); PROTEIN,URINE 2+ (NEGATIVE); UROBILINOGEN,URINE 4 MG/DL (0.0-1.0)
[2020-09-10 12:41] LABS: COLOR,URINE YELLOW
[2020-09-10 12:45] VITALS: BP 125/76
[2020-09-10] MEDS ORDERED: Fluconazole 150mg tab ORAL ONE (12:45)
[2020-09-10] MEDS ORDERED: Azithromycin 250mg tab ORAL ONE (12:45)
[2020-09-10] MEDS ORDERED: Lidocaine 1% MPF 10mg/ml 5ml INJ ONE (12:45)
--- NOTE | 2020-09-10 12:49 | Emergency Room Report ---
History of Present Illness General Chief Complaint: Vaginal Source: Medical Record Present Illness HPI 45-year-old female with history of diabetes currently taking Metformin here complaining of 1 week of dysuria and urinary frequency as well as yellow vaginal discharge. Patient reports that she was last sexually active 1 week ago without protection. Reports that partner may be possible for chlamydia and gonorrhea. Has not taken medication for symptom relief. Denies any pelvic pain however complains of suprapubic pain and pressure. Denies fever and chills, nausea vomiting. Denies . Allergies: Coded Allergies: No Known Allergies (Unverified , 09/04/12) COVID-19 Screening Contact w/high risk pt: No Recent Travel to affected area: No Experienced COVID-19 symptoms?: No COVID-19 Testing performed TELEVISION INSTALLER: No Patient History Past Medical History: see triage record Past Surgical History: none Pertinent Family History: none Last Menstrual Period: 08/22/20 Now: No Immunizations: UTD Reviewed Nursing Documentation: PMH: Agreed; PSxH: Agreed Nursing Documentation-PMH Hx Diabetes: Yes Hx Neurological Problems: Yes - HX OF RASH, nerve pain Review of Systems All Other Systems: negative except mentioned in HPI Physical Exam Vital Signs Date Time Temp Pulse Resp B/P (MAP) Pulse Ox O2 Delivery O2 Flow Rate FiO2 09/10/20 12:15 98.4 99 20 125/76 (92) 97 Room Air Sp02 EP Interpretation: reviewed, normal General Appearance: no apparent distress, alert, GCS 15, non-toxic Head: normocephalic, atraumatic Eyes: bilateral eye normal inspection, bilateral eye PERRL ENT: hearing grossly normal, normal pharynx, no angioedema, normal voice Neck: full range of motion, supple/symm/no masses Respiratory: chest non-tender, lungs clear, normal breath sounds, speaking full sentences Cardiovascular #1: regular rate, rhythm, no edema Gastrointestinal: normal bowel sounds, non tender, soft, non-distended, no guarding, no rebound Rectal: deferred Genitourinary: no CVA tenderness Musculoskeletal: back normal Neurologic: alert, motor strength/tone normal, oriented x3, sensory intact, responsive, speech normal Psychiatric: judgement/insight normal, memory normal, mood/affect normal, no suicidal/homicidal ideation Skin: no rash Lymphatic: no adenopathy Medical Decision Making PA Attestation Diagnosis and treatment plans were reviewed and discussed with my supervising physician Dr. Spencer Diagnostic Impression: Primary Impression: UTI (urinary tract infection) Additional Impression: Possible exposure to STD ER Course 45-year-old female with history of diabetes currently taking Metformin here complaining of 1 week of dysuria and urinary frequency as well as yellow vaginal discharge. Patient reports that she was last sexually active 1 week ago without protection. Reports that partner may be possible for chlamydia and gonorrhea. Has not taken medication for symptom relief. Denies any pelvic pain however complains of suprapubic pain and pressure. Denies fever and chills, nausea vomiting. Denies . Ddx considered but are not limited to: vaginitis, yeast infection, BV, chlamydia, Gonorrhea, syphilis, HIV, herpes 1 or 2 Vital signs: are WNL, pt. is afebrile H&PE are most consistent with : UTI, possible exposure to STD ORDERS: UA, urince cx, urine , Flagyl, Keflex ED INTERVENTIONS: Rocephin IM, azithromycin, Diflucan DISCHARGE: At this time pt. is stable for d/c to home. Will provide printed patient care instructions, and any necessary prescriptions. Care plan and follow up instructions have been discussed with the patient prior to discharge. Gave patient a list of STD clinics in women[facility] clinic in case further evaluation needed. At this time patient is afebrile, denies any pelvic pain and ultrasound done at this time to rule out PID however advised patient return to emergency ro om if worsening symptoms. Last Vital Signs Date Time Temp Pulse Resp B/P (MAP) Pulse Ox O2 Delivery O2 Flow Rate FiO2 09/10/20 12:15 98.4 99 20 125/76 (92) 97 Room Air Disposition: HOME, SELF-CARE Condition: Stable Scripts Metronidazole* (FLAGYL*) 500 Mg Tablet 500 MG ORAL BID for 7 Days, #14 TAB Prov: Ernie Troy 09/10/20 Cephalexin* (KEFLEX*) 500 Mg Capsule 500 MG ORAL EVERY 12 HOURS for 7 Days, #14 CAP 0 Refills Prov: Ernie Troy 09/10/20 Referrals: NOT CHOSEN IPA/MD,REFERRING (PCP) Patient Instructions: Chlamydia, Female, [id number], Gonorrhea, Urinary Tract Infection, [id number], Vaginitis Additional Instructions: Take medication as directed, follow primary care provider, if worsening symptoms return to the emergency Ernie Troy Sep 10, 2020 12:49
[2020-09-10] MEDS ORDERED: METRONIDAZOLE500 MG ORAL (12:51)
[2020-09-10] MEDS ORDERED: CEPHALEXIN500 MG ORAL (12:51)
[2020-09-10 13:05] VITALS: BP 124/77
--- NOTE | 2020-09-10 13:05 | NUR ---
ER DISCHARGE NOTE: Patient is cleared to be discharged per ERMD, pt is aox4, on room air, with stable vital signs. pt was given dc and prescription instructions, pt was able to verbalize understanding, pt id band removed. pt is able to ambulate with steady gait. pt took all belongings.
== END 2020-09-10 13:05 | disposition home or self-care (01) ==
LOC: EMR 12:26
DX: N39.0 Urinary tract infection, site not specified (principal); E11.9 Type 2 diabetes mellitus without complications; Z79.84 Long term (current) use of oral hypoglycemic drugs
CPT/HCPCS: 81003; 87086; 96372; 99283; J0696

== ENCOUNTER 2020-10-17 14:45 | Emergency (ER) | payer OTHER ==
[~2020-10-17] VITALS: Ht 172.7 cm; Wt 68.0 kg
[~2020-10-17 14:45] MED LIST changes: +CEPHALEXIN500 MG ORAL; +METRONIDAZOLE500 MG ORAL
[2020-10-17 15:19] LABS: APPEARANCE,URINE CLEAR; BILIRUBIN, URINE NEGATIVE (NEGATIVE); GLUCOSE, URINE (UA) NEGATIVE (NEGATIVE); KETONES,URINE NEGATIVE (NEGATIVE); LEUKOCYTE ESTERASE ,URINE 1+ (NEGATIVE); NITRITE,URINE NEGATIVE (NEGATIVE); PH,URINE 6 (4.5-8.0); PROTEIN,URINE NEGATIVE (NEGATIVE); UROBILINOGEN,URINE NORMAL MG/DL (0.0-1.0)
[2020-10-17 15:23] LABS: COLOR,URINE YELLOW
[2020-10-17 15:30] VITALS: BP 134/90
[2020-10-17] MEDS ORDERED: Tylenol #3 tab (300mg/30mg) ORAL ONE (17:15)
--- NOTE | 2020-10-17 17:21 | Emergency Room Report ---
History of Present Illness General Chief Complaint: Vaginal Source: Patient Present Illness HPI 45 YO female presents to the ED c/o 04/23 in severity itchy and burning in the vaginal/pelvic area x 4 days. pt. reports initially having extreme itchiness which later was accompanied by yellow/white-rosalinda vaginal d/c. Pt. also reports seeing white spots on the inner labia. Pt. Denies concern or suspicion for STI. She denies . Pt. Denies fevers, chills, abdominal tenderness, or swollen tender lymph nodes. Pt. reports dysuria. She denies frequency, urgency or hematuria. She reports she has applied Vaseline without relief. 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 COVID-19 Screening: Negative COVID-19 COVID-19 Testing Source: Food Sanitarian Patient History Past Medical History: see triage record Past Surgical History: none Pertinent Family History: none Last Menstrual Period: 10/09/20 Now: No Reviewed Nursing Documentation: PMH: Agreed; PSxH: Agreed Nursing Documentation-PMH Hx Diabetes: Yes Hx Neurological Problems: Yes - HX OF RASH, nerve pain Review of Systems All Other Systems: negative except mentioned in HPI Physical Exam Vital Signs Date Time Temp Pulse Resp B/P (MAP) Pulse Ox O2 Delivery O2 Flow Rate FiO2 10/17/20 14:55 97.9 84 15 134/90 (105) 99 Room Air Sp02 EP Interpretation: reviewed, normal General Appearance: no apparent distress, alert, GCS 15, non-toxic Head: normocephalic, atraumatic Eyes: bilateral eye normal inspection, bilateral eye PERRL ENT: hearing grossly normal, normal voice Neck: full range of motion Respiratory: lungs clear, normal breath sounds, speaking full sentences Cardiovascular #1: regular rate, rhythm Gastrointestinal: normal bowel sounds, non tender, soft Rectal: deferred Genitourinary: normal inspection, no CVA tenderness, adnexa normal, ext genitalia/vag normal, other - Moderate amount of yellowish-white opaque discharge in the vaginal vault. No external rashes or lesions. Discomfort with palpation and insertion of speculum. No blood no strawberry cervix. questionable CMT. Musculoskeletal: back normal, normal range of motion, gait/station normal, non- tender Neurologic: alert, motor strength/tone normal, oriented x3, sensory intact, responsive, speech normal Psychiatric: judgement/insight normal Skin: no rash, normal color Lymphatic: no adenopathy Medical Decision Making PA Attestation Dr. Wagner Is my supervising Physician whom patient management has been discussed with. Diagnostic Impression: Primary Impression: Vaginitis and vulvovaginitis Additional Impression: Concern about STD in female without diagnosis ER Course 45 YO female presents to the ED c/o 04/23 in severity itchy and burning in the vaginal/pelvic area x 4 days. pt. reports initially having extreme itchiness which later was accompanied by yellow/white-rosalinda vaginal d/c. Pt. also reports seeing white spots on the inner labia. Pt. Denies concern or suspicion for STI. She denies . Pt. Denies fevers, chills, abdominal tenderness, or swollen tender lymph nodes. Pt. reports dysuria. She denies frequency, urgency or hematuria. She reports she has applied Vaseline without relief. Ddx considered but are not limited to UTi , Pyelo, STI, Stone, Cystitis, vaginal laceration, vaginitis. Vital signs: are WNL, pt. is afebrile H& PE are most consistent with: Vaginitis ORDERS: - UA labs are attached --WNL - Wet Mount : No trichomoniasis no clue cells no yeast ED INTERVENTIONS: -Diflucan PO --Discussed with patient results of her urine as well as wet mount and again reiterated that if there is any possibility/concern for STI that it should be treated. Patient then agreed and asked to be treated prophylactically. Rocephin IM 500mg DISCHARGE: At this time pt. is stable for d/c to home. Will provide printed patient care instructions, and any necessary prescriptions. Care plan and follow up instructions have been discussed with the patient prior to discharge. discussed with the patient prior to discharge. Labs Test 10/17/20 15:05 Urine Color Yellow Urine Appearance Clear Urine pH 6 (4.5-8.0) Urine Specific [place] 1.020 (1.005-1.035) Urine Protein Negative (NEGATIVE) Urine Glucose (UA) Negative (NEGATIVE) Urine Ketones Negative (NEGATIVE) Urine Blood Negative (NEGATIVE) Urine Nitrite Negative (NEGATIVE) Urine Bilirubin Negative (NEGATIVE) Urine Urobilinogen Normal MG/DL (0.0-1.0) Urine Leukocyte Esterase 1+ (NEGATIVE) Urine RBC 0-2 /HPF (0 - 2) Urine WBC 2-4 /HPF (0 - 2) Urine Squamous Epithelial Cells Moderate /LPF (NONE/OCC) Urine Bacteria Few /HPF (NONE) Last Vital Signs Date Time Temp Pulse Resp B/P (MAP) Pulse Ox O2 Delivery O2 Flow Rate FiO2 10/17/20 15:30 97.9 15 134/90 99 Room Air 10/17/20 14:55 84 Status: improved Disposition: HOME, SELF-CARE Condition: Stable Scripts Fluconazole (FLUCONAZOLE) 100 Mg Tablet 100 MG ORAL DAILY for 2 Days, #2 TAB 0 Refills Prov: Paradise Argueta 10/17/20 Doxycycline Hyclate* (VIBRAMYCIN*) 100 Mg Capsule 100 MG ORAL EVERY 12 HOURS for 10 Days, #20 CAP 0 Refills Prov: Paradise Argueta 10/17/20 Referrals: Sukhwinder WOMACK,REFERRING (PCP) Sukhwinder Womack [facility]. [facility] Departure Forms: Return to Work Return to Work Date: Oct 21, 2020 Other Restrictions: May return Sooner if Symptoms have resolved. Return to Full Activity: Oct 21, 2020 Work Restrictions: None Patient Instructions: Vaginitis, [id number] Additional Instructions: Take medications as directed. Follow up with a Primary Care Provider in 3-5 days, even if your symptoms have resolved. --Please review list of primary care clinics, if you do not already have a primary care provider Return sooner to ED if new symptoms occur, or current symptoms become worse. - Please note that this Emergency Department Report was dictated using [employer] administrator technology software, occasionally this can lead to erroneous entry secondary to interpretation by the dictation equipment. Paradise Argueta Oct 17, 2020 17:21
[2020-10-17] MEDS ORDERED: Lidocaine 1% MPF 10mg/ml 5ml INJ ONE (17:45)
[2020-10-17] MEDS ORDERED: Fluconazole 150mg tab ORAL ONE (17:45)
[2020-10-17] MEDS ORDERED: cefTRIAXone 500mg Inj IM ONE (17:45)
[2020-10-17] MEDS ORDERED: FLUCONAZOLE100 MG ORAL (17:48)
[2020-10-17] MEDS ORDERED: VIBRAMYCIN100 MG ORAL (17:48)
[2020-10-17 17:56] VITALS: BP 130/77
== END 2020-10-17 17:50 | disposition home or self-care (01) ==
LOC: EMR 15:05
DX: N76.0 Acute vaginitis (principal); E11.9 Type 2 diabetes mellitus without complications
CPT/HCPCS: 81003; 87210; 96372; 99283; J0696